=== PATIENT | female | born 1995 | race Caucasian/White ===

== ENCOUNTER 2017-06-06 13:53 | Emergency (ER) | payer BC ==
[2017-06-06 14:17] VITALS: BP 139/76
[2017-06-06 14:30] LABS: Hematocrit 38.6 % (37.0-47.0); Hemoglobin 13.4 gm/dL (12.5-16.0); Mean Cell Volume 88.3 fl (78-100); Mean Corpuscular Hemoglobin 30.7 pg (27-31); Mean Corpuscular Hgb Conc 34.7 g/dl (32-36); Mean Platelet Volume 9.6 fl (6.0-9.5); Neutrophil # 3.8 K/mm3 (1.3-6.0); Neutrophil % 63.6 % (42-75.0); Platelet Count 245 K/mm3 (150-450); Red Blood Count 4.37 M/mm3 (4.2-5.4); Red Cell Distribution Width 11.9 % (11.5-14.0); White Blood Count 5.9 K/mm3 (4.0-10.5)
[2017-06-06 14:44] LABS: Albumin * 4.6 gm/dl (3.4-5.0); Anion Gap 12.4 mmol/L (6.8-13.8); BUN/Creatinine Ratio 14.5 (9.0-21.6); Bilirubin, Total 0.5 mg/dL (0.0-1.1); Ca. Corrected For Albumin 8.4 mg/dL (8.4-10.2); Calcium * 9.2 mg/dL (7.9-10.9); Carbon Dioxide 26.3 mmol/L (24-32.6); Potassium 3.7 mmol/L (3.4-4.6)
[2017-06-06 15:21] LABS: Urine Bilirubin Negative (NEGATIVE); Urine Blood 250 /ul (NEGATIVE); Urine Ketone Negative (NEGATIVE); Urine Nitrite Negative (NEGATIVE); Urine Protein 15 mg/dL (NEGATIVE); Urine Urobilinogen Normal (NORMAL)
[2017-06-06 15:30] LABS: Urine Appearance Cloudy; Urine Bacteria TRACE; Urine Color Dark Yellow; Urine RBC 25-50 /hpf (0-5); Urine WBC None Seen /hpf (0-5)
--- NOTE | 2017-06-06 16:07 | ERNOTE ---
Abdominal HPI - General Chief Complaint: Abdominal Pain Time Seen by Provider: 06/06/17 15:48 Source: patient Exam Limitations: no limitations - Immun/Allergies/Home Medications Immunizatons: IMMUNIZATION HX Immunizations Up to Date Yes Allergies/Adverse Reactions: Allergies No Known Allergies Allergy (Verified 06/06/17 14:17) Home Medications: HOME MEDICATIONS Ibuprofen 600 mg PO PRN PRN 05/26/13 [Last Taken 05/26/13 16:00] Ondansetron [Zofran Odt] 8 mg PO QID PRN #30 tab 08/09/15 [Last Taken Unknown] - History of Present Illness Narrative: Patient was started on an antibiotic for a UTI on 06/03. 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 She has had three episodes of watery diarrhea last prior to coming here, denies any sick contacts or suspicious food. regular periods, LMP 06/02/17, not sexually active Review of Systems - Review of Systems Constitutional: Present: recent illness. Absent: fever ENT: Absent: nose congestion, sore throat Respiratory: Absent: shortness of breath Cardiology: Absent: chest pain Gastrointestinal/Abdominal: Present: See HPI, diarrhea, abdominal pain. Absent : nausea, vomiting Genitourinary: Present: no symptoms reported. Absent: frequency, dysuria Musculoskeletal: Absent: back pain Skin: Absent: rash Neurological: Present: headache - earlier, resolved now - Patient's Past Medical History Patient History - Medical: Hypothyroidism Patient History - Cardiac/Respiratory: No pertinent hx Patient History - Cancer: No Hx of Cancer Patient History - Surgical Procedures: No surgical history - Social History Living Situations: home Abuse History: No History of abuse Alcohol Use: none Drug Use: none - Immunizations Immunizations Up to Date: Yes Physical Exam - Physical Exam General Appearance: Present: wd/wn, alert, no apparent distress Ears, Nose, Throat: Present: normal pharynx Respiratory: Present: no respiratory distress, normal breath sounds, lungs clear Cardiovascular/Chest: Present: regular rate, rhythm, no murmur Gastrointestinal/Abdominal: Present: normal bowel sounds, nontender, nondistended, soft, no organomegaly Back Exam: Present: no CVA tenderness Neurological Exam: Present: alert, oriented, normal mood/affect, no motor/ sensory deficits Skin Exam: Present: normal color, warm/dry ED Progress - Results and Orders Patient's Lab Results:: I have reviewed the patient's lab results. - reviewed culture from 06/02 E coli pansensitive - Vital Signs Patient's Vital Signs:: I have reviewed the patient's vital signs. Vital Signs: Vital Signs 06/06/17 06/06/17 14:14 15:14 Temperature 36.7 C Pulse Rate 79 72 Respiratory 12 14 Rate Blood Pressure 139/76 139/76 O2 Sat by Pulse 97 97 Oximetry - Progress/Reassessment Chief Complaint: Abdominal Pain Progress Note-Subjective: 06/06/17 16:05 discussed probiotics Departure Clinical Impression: UTI (urinary tract infection) Qualifiers: Urinary tract infection type: site unspecified Hematuria presence: without hematuria Qualified Code(s): N39.0 - Urinary tract infection, site not specified Abdominal pain Qualifiers: Abdominal location: left upper quadrant Qualified Code(s): R10.12 - Left upper quadrant pain - Departure Disposition: Home self-care Condition: Good Instructions: Abdominal Pain, Adult, [id number] Additional Instructions: your diarrhea is most likely related to the antibiotics finish the antibiotics as prescribed but start taking probiotics
== END 2017-06-06 16:05 | disposition home or self-care (01) ==
LOC: ER 13:53
DX: N39.0 Urinary tract infection, site not specified (principal); R10.12 Left upper quadrant pain